=== PATIENT | male | born 1970 | race Caucasian/White ===

== ENCOUNTER 2018-07-29 00:14 | Emergency (ER) | payer BC ==
[~2018-07-29] VITALS: Ht 172.7 cm; Wt 91.6 kg
[2018-07-29 00:34] VITALS: BP 139/88
--- NOTE | 2018-07-29 00:41 | NUR ---
AMBULATED TO ER BED 9
--- NOTE | 2018-07-29 00:51 | NUR ---
Pt c/o laceration to right foot today. Pt states he cut his toe while throwing out the garbage and caught his foot on fencing. No active bleeding noted. AOX4, ambulatory with steady gait. VSS.
--- NOTE | 2018-07-29 01:25 | NUR ---
PT WOUND IRRIGATED WITH NORMAL SALINE AND BETADINE. COVERED WITH NON ADHERENT DRESSING AND WRAPPED WITH COFLEX TAPE. +CSM
--- NOTE | 2018-07-29 02:10 | NUR ---
Patient discharged with v/s stable. Written and verbal after care instructions given and explained. Patient alert, oriented and verbalized understanding of instructions. Ambulatory with steady gait. All questions addressed prior to discharge. ID band removed. Patient advised to follow up with PMD. Rx of Naprosyn and Keflex given. Patient educated on indication of medication including possible reaction and side effects. Opportunity to ask questions provided and answered. Discharged by Dr. Hernandez.
[2018-07-29 02:12] VITALS: BP 128/79
== END 2018-07-29 02:10 | disposition home or self-care (01) ==
LOC: MED 00:14
DX: S91.114A Laceration without foreign body of right lesser toe(s) without damage to nail, initial encounter (principal); X58.XXXA Exposure to other specified factors, initial encounter; Y93.89 Activity, other specified; Y92.89 Other specified places as the place of occurrence of the external cause; Y99.8 Other external cause status
CPT/HCPCS: 90471; 90715; 99283